=== PATIENT | female | born 1975 | race Caucasian/White ===

== ENCOUNTER 2024-10-15 07:42 | Emergency (ER) | payer OTHER ==
[2024-10-15] MEDS ORDERED: Boostrix 0.5 ML (Tdap) VIAL (>/=7 yrs of age) ONE (08:35)
[2024-10-15] MEDS ORDERED: Amoxicillin/Potassium Clav 875 MG TAB ONE (08:35)
[2024-10-15] MEDS ORDERED: Bacitracin 1 PK ONE (08:35)
== END 2024-10-15 09:00 | disposition home or self-care (01) ==
LOC: MADERS 07:42
DX: S81.851A Open bite, right lower leg, initial encounter (principal); W54.0XXA Bitten by dog, initial encounter
CPT/HCPCS: 90471; 90715